=== PATIENT | male | born 1995 | race Caucasian/White ===

== ENCOUNTER 2019-12-14 13:06 | Outpatient (CLI) | payer BC, SELFPAY ==
--- NOTE | 2019-12-14 13:00 | MR_ITS ---
WS: [id number] MRI LEFT KNEE HISTORY: S83.209A Unspecified tear of unspecified meniscus COMPARISON: 11/30/2019 Anterior cruciate ligament: Complete tear of the ACL. Complete disruption of the fibers in the centra l ACL with marked thickening. Posterior cruciate ligament: Intact. Medial collateral ligament: Small amount of fluid adjacent to the MCL. Posterior lateral corner structures: Intact. Medial menisci: Intact. Lateral meniscus: Increased signal in the posterior horn towards the free edge. Consistent with a men iscal tear. Tear appears to be in the vertical dimension. Extensor mechanism: Distal quadriceps tendon and patellar tendons are intact. Fluid and soft tissue: Very large suprapatellar joint effusion. Moderate amount of edema surrounding the knee. No Hilario's cyst. Osseous and articular structures: Patellofemoral compartment: Normal. Medial compartment: Joint space is maintained. Edema within the medial tibial plateau in the far medi al femoral condyle. Lateral compartment: Joint space is maintained. There is a full-thickness cartilage defect measuring 3.5 mm transversely in the tibial plateau. There is a large amount of marrow edema along the tibial p lateau and also extending into the proximal fibular head. There are 2 ovoid intermediate signal nodules in the anterior joint space. The largest measures 14 x 5 mm in the anterior joint space. These are probably loose bodies. Clumped fibers of the ACL may also be present. MR/MR knee LT wo con* [id number] IMPRESSION: 1. Complete tear ACL. 2. Large amount of marrow edema along the entire tibial plateau into the tibia l metaphysis and fibular head. 3. Very small amount of marrow edema in the medial femoral condyle. 4. Tear involving the free edge posterior horn lateral meniscus. 5. Full-thickness lateral tibial plateau cartilage defect measuring 3.5 mm. 6. Several small loose bodies in the anterior joint space. 7. Mild MCL sprain. 8. Very large joint effusion.
== END 2019-12-14 13:07 | disposition home or self-care (01) ==
LOC: RADSHAW 13:09
PROVIDERS: Visit Provider Orthopaedic Surgery
DX: S83.519A Sprain of anterior cruciate ligament of unspecified knee, initial encounter; S83.282A Other tear of lateral meniscus, current injury, left knee, initial encounter; S83.412A Sprain of medial collateral ligament of left knee, initial encounter; X58.XXXA Exposure to other specified factors, initial encounter; R60.0 Localized edema; M25.462 Effusion, left knee
CPT/HCPCS: 73721

== ENCOUNTER → 2019-12-29 09:53 | Outpatient (BNVA) | payer BC, SELFPAY | PROVIDERS: Visit Provider Orthopaedic Surgery | DX: Z11.59 Encounter for screening for other viral diseases (principal); S83.92XA Sprain of unspecified site of left knee, initial encounter; X58.XXXA Exposure to other specified factors, initial encounter | CPT/HCPCS: 87635 ==

== ENCOUNTER 2020-01-04 10:51 | Day surgery (SDC) | payer BC, SELFPAY ==
[2020-01-03 09:02] VITALS: BMI 26.6
[2020-01-04] VITALS (12 sets, daily range): BP systolic 122–187; BP diastolic 70–123; PULSE 83–114; RESP 14–24; TEMP 36.1–37.1; O2SAT 96–100
[2020-01-04] MEDS: sodium chloride 0.9% 1,000 ML 30 ML IV (11:33)
--- NOTE | 2020-01-04 11:41 | ANES.PREANE2 ---
Pre-Anesthetic Assessment Pre-Anesthetic Assessment: Height/Weight: Height 1.88 m Weight 93.894 kg Temp Pulse Resp BP Pulse Ox 98.8 F 83 18 159/83 98 01/04/20 11:18 01/04/20 11:18 01/04/20 11:18 01/04/20 11:18 01/04/20 11:18 Preop Diagnosis: Left anterior cruciate ligament tear, left lateral meniscal tear, chondral fracture left lateral tibial plateau Proposed Procedure: Operation Date: 01/04/20 12:20 Proposed Procedures p Left knee ACL Reconstruction and other indicated procedures 54666 S83.207A(Left) - Huey Ellis MD Familial anesthetic complications: None Was Beta Steve taken within 24 hours: N/A Last intake: Intake Last Liquid Date 01/04/20 Last Liquid Time 06:00 Last Solid Date 01/04/20 Last Solid Time 18:00 Social: Social History: Alcohol and Tobacco Comment: 6 pack a day Exam: Pre-Anes Outpt Exam: alert, oriented x 3, clear to auscultation bilaterally and regular rate & rhythm Airway: Cervical ROM: WNL MP: 2 Dentition: Chipped Anesthetic Plan: ASA status: 1 Anesthesia: General Risk of > 500 ml blood loss (7ml/kg in children): No Meds/Allergies Current Medications: Current Medications Generic Name Dose Route Start Last Admin Trade Name Freq PRN Reason Stop Dose Admin Sodium Chloride 1,000 mls @ 30 ml s/hr 01/04/20 11:15 01/04/20 11:33 Sodium Chloride 0.9% IV 01/05/20 11:14 30 mls/hr .Q24H JAIDA Administration PFSH Anesthesia PFSH: Social History Smoking and tobacco status: never smoked Alcohol intake: current Alcohol intake frequency: few times a week Data Anesthesia Cardiac Studies: No Data to Display
--- NOTE | 2020-01-04 13:19 | W.PM.OPSUD ---
Surgery/Procedure H&P Update DATE OF PROCEDURE: January 04, 2020 DATE H&P PERFORMED: 12/25/19 PREOP DIAGNOSIS: Left anterior cruciate ligament tear, left lateral meniscal tear, chondral fracture left lateral tibial plateau PLANNED PROCEDURE: Operation Date: 01/04/20 12:20 Proposed Procedures p Left knee ACL Reconstruction and other indicated procedures 31920 S83.207A(Left) - Huey Ellis MD
[2020-01-04] MEDS: clindamycin 600 MG/50 ML PREMIX 100 MG IV (14:38)
[2020-01-04] MEDS: morphine 4 mg/mL SDV 1 mL 8 MG IM (15:20)
--- NOTE | 2020-01-04 16:57 | PM.OP ---
Operative Report Date of procedure: January 04, 2020 Pre-op Diagnosis: Left anterior cruciate ligament tear, left lateral meniscal tear, chondral fracture left lateral tibial plateau Post-op diagnosis: other Post-op Diagnosis: Left anterior cruciate ligament tear, left lateral meniscal tear Post-op Findings: As above Procedure Done: Anterior cruciate ligament reconstruction, partial left lateral meniscectomy Implants: [employer] 15 mm closed loop Endobutton, BioSureSync sleeve 9/10, 9 x 25 mm BioSure screw Pathology: none sent Surgeon: Huey Ellis Anesthesia: General Estimated blood loss (mL): 20 Tourniquet time (min): 81 Complications: None Findings: The patient had a complete tear of his anterior cruciate ligament from its origin on the femur scarring back on his posterior cruciate ligament. He had a small flap tear involving the lateral meniscal root involving the central 50% with a remaining stable attachment chondral fractures were identified Condition: stable Disposition: PACU Procedure: The patient was taken to the operating room and given a general anesthesia. He was given 2 g of Ancef. He is knee was infiltrated with 30 cc of 0.5% Marcaine with epi and 10 mg of morphine. The leg was prepped and draped in the usual fashion. A timeout was performed. The knee was entered through the inferior medial and inferior lateral portal. The diagnostic portion of arthroscopy was performed. The lateral meniscal tear was identified. Utilizing an incisor shaver the posterior flap was debrided back. This did involve removal approximately the central 40% of the meniscal root however the remaining peripheral attachment appeared to be intact. Attention was then paid to the anterior cruciate ligament. Utilizing an incisor shaver small amount of lateral wall was resected allowing visualization of the posterior lateral intercondylar notch. A 3 cm long incision was then made over the medial tibial plateau and dissection carried down with blunt scissors identifying a well-defined semi-tendinosis and gracilis graft. The 2 grafts were freed off their insertion on the tibia and fixed with a [employer] Ultrabraid suture. Using the closed ended tendon stripper to grafts were harvested. On the back table with her freed of muscle and the free ends fixed with the Ultrabraid suture. They were pretensioned on the back table. They were measured and fit snugly through a [] mm tunnel. Using the anatomic femoral footprint guide, a guidepin was driven up from the 1:30 position exiting superior and lateral femur. Tunnel depth was measured at 40 mm. The Endobutton reamer was passed over the guide pin confirming the length of tunnel. A 9.5 mm reamer was then passed to a depth of 35 mm. The [employer]hew ProTrac guide was used to pass a guidepin from the medial tibia exiting the tibial footprint. Over this was passed in a 10 mm reamer. On the back table, the 2 grafts were doubled through a 15 mm closed loop Endobutton. This allowed 25 mm of tendon to be buried in the femur and allowed more than sufficient room to flip the Endobutton. The grafts were shuttled from the tibia through the femur using an ultra braid suture. The Endobutton was felt to flip on the lateral cortex and secured with tension on the sutures to the tibia. A [employer] Biosure Sync sleeve was placed and was secured with a 9 x 25 mm Biosure PK screw. Intraoperative images showed satisfactory position of the button. The knee and medial wounds were irrigated with saline. The sartorius fascia was closed with 2-0 Vicryl. Deep tissues were closed with 2-0 Vicryl. The tibial wound was closed with a running 3-0 Prolene. Portals were closed with 3-0 Prolene. Steri-Strips were applied over the tibial incision. Sterile dressings were applied. He was taken to recovery room in stable condition where he will be placed in a hinged knee brace locked in full extension.
[2020-01-04] MEDS: meperidine 50 mg/mL INJ 12.5 MG IVP ×2 (17:04→17:09)
[2020-01-04] MEDS: ondansetron 2 mg/ML SDV 2 mL 4 MG IVP (17:17)
--- NOTE | 2020-01-04 18:20 | ANE.PACU2 ---
Inpatient post-anesthesia follow up: Airway intact: Yes Vital signs: Temperature 97 F Pulse Rate 86 Respiratory Rate 18 Blood Pressure 122/70 Pulse Oximetry 98 Oxygen Delivery Me thod Room Air Oxygen Flow Rate 8 Fraction of Inspir ed Oxygen Hydration adequate: Yes Nausea and vomiting: No Pain level: 3 Mental status: Baseline
--- NOTE | 2020-01-04 19:18 | PC.NURSE ---
1820- oxycodone non administered, pt refused. pharmacist saqib gross.
== END 2020-01-04 18:20 | disposition home or self-care (01) ==
PROVIDERS: Visit Provider Orthopaedic Surgery
PROC: (CPT 27407; principal; 2020-01-04 12:20)
DX: S83.512A Sprain of anterior cruciate ligament of left knee, initial encounter (principal); S83.282A Other tear of lateral meniscus, current injury, left knee, initial encounter; S82.142A Displaced bicondylar fracture of left tibia, initial encounter for closed fracture; X58.XXXA Exposure to other specified factors, initial encounter; F17.210 Nicotine dependence, cigarettes, uncomplicated
CPT/HCPCS: 27429; 29881; 12345; 97760; C1713; J1100; J1580; J1885; J2175; J2250; J2270; J2405; J2704; J3010; J3490; J7030; L1812

== ENCOUNTER 2020-01-08 15:30 | Outpatient (RCR) | payer BC, SELFPAY | END 2020-01-13 23:59 | disposition home or self-care (01) | LOC: SPT 15:30 | PROVIDERS: Referring Provider Orthopaedic Surgery; Visit Provider Orthopaedic Surgery | DX: Z47.89 Encounter for other orthopedic aftercare (principal) | CPT/HCPCS: 97110; 97161 ==

== ENCOUNTER 2020-01-14 06:00 | Outpatient (RCR) | payer BC, SELFPAY | END 2020-02-12 23:59 | disposition home or self-care (01) | LOC: SPT 06:00 | PROVIDERS: Referring Provider Orthopaedic Surgery; Visit Provider Orthopaedic Surgery | DX: S83.512D Sprain of anterior cruciate ligament of left knee, subsequent encounter (principal) | CPT/HCPCS: 97110 ==

== ENCOUNTER 2020-02-13 06:00 | Outpatient (RCR) | payer BC, SELFPAY | END 2020-03-14 23:59 | disposition home or self-care (01) | LOC: SPT 06:00 | PROVIDERS: Referring Provider Orthopaedic Surgery; Visit Provider Orthopaedic Surgery | DX: Z47.89 Encounter for other orthopedic aftercare (principal) | CPT/HCPCS: 97110 ==

== ENCOUNTER 2020-03-15 06:00 | Outpatient (RCR) | payer OTHER, SELFPAY | END 2020-04-14 23:59 | disposition home or self-care (01) | LOC: SPT 06:00 | PROVIDERS: Referring Provider Orthopaedic Surgery; Visit Provider Orthopaedic Surgery | DX: Z98.890 Other specified postprocedural states (principal); S86.002D Unspecified injury of left Achilles tendon, subsequent encounter; X58.XXXD Exposure to other specified factors, subsequent encounter | CPT/HCPCS: 97110 ==

== ENCOUNTER 2020-04-15 06:00 | Outpatient (RCR) | payer OTHER, SELFPAY | END 2020-05-12 23:59 | disposition home or self-care (01) | LOC: SPT 06:00 | PROVIDERS: Referring Provider Orthopaedic Surgery; Visit Provider Orthopaedic Surgery | DX: Z48.89 Encounter for other specified surgical aftercare (principal) | CPT/HCPCS: 97110; 97116 ==

== ENCOUNTER 2023-05-06 13:47 | Emergency (ER) | payer OTHER, SELFPAY ==
[2023-05-06 13:48] VITALS: BP 139/95; PULSE 106; RESP 13; TEMP 37; O2SAT 99; BMI 20.5
--- NOTE | 2023-05-06 13:51 | ED_ITS ---
HPI - Syncope 2 General: Chief Complaint: Syncope Stated Complaint: syncope Time Seen by Provider: 05/06/23 13:50 History of Present Illness: 28-year-old male patient was brought in today for a syncopal episode. 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 And they were waiting to close gait and the patient was standing behind him when his father heard in cast and he turned around and the patient was seen on the ground having seizure-like episode. Patient then seemed to stop breathing and father performed CPR for like 1 minute until he gasp and started breathing on his own again. Patient then seemed dazed for about 15 to 20 minutes. Since then patient has been acting normal. Father reports that patient's had problems with his stomach and has had several vomiting episodes. Patient does endorse alcohol use and tobacco use. Patient does take [id number] omeprazole, ibuprofen, and a daily vitamin. Patient does admit that alcohol drinking causes the emesis. Patient denies any blood in the emesis. Patient's last ingestion of alcohol was last night. Patient has noticeable abrasion to center forehead. This did occur about 30 minutes prior to seizure activity. Patient and father both report they were chasing a cow when he accidentally ran into a tree. Review of Systems 2 General: Reports: 10 or more systems reviewed and unremarkable except in HPI and below Neuro: Reports: seizure-like activity [facility] ED 2 PFSH: Social History Smoking and tobacco/nicotine status: never used tobacco/nicotine Alcohol intake: current Alcohol intake frequency: few times a week Substance/Drug Use: never Physical Exam 2 Const: COMMON NORMALS: alert HENMT: COMMON NORMALS: normocephalic HEAD & SCALP: normocephalic Eye: COMMON NORMALS: Equal, round and reactive pupils present PUPIL: Yes Equal, round and reactive pupils present Neck/C-Spine: COMMON NORMALS: full ROM and no meningeal signs Chest: COMMONS NORMALS: normal inspection of the chest Resp: COMMON NORMALS: normal respiratory effort and clear to auscultation bilaterally AUSCULTATION: clear to auscultation bilaterally Cardio: COMMON NORMALS: regular rate and regular rhythm RATE: regular rate RHYTHM: regular rhythm GI: COMMON NORMALS: Soft to palpation and non-tender PALPATION: Yes Soft to palpation : COMMON NORMALS: Yes no CVA tenderness BLADDER/KIDNEY EXAM: Yes no CVA tenderness Back/Pelvis: COMMON NORMALS: no CVA tenderness and thoracic and lumbar spine normal to inspection Extremity: COMMON NORMALS: normal to inspection Neuro: ELLIOT COMA SCALE: document GCS findings [place] coma scale eye opening: Spontaneous [place] coma scale verbal response: Orientated [place] coma scale motor response: Obey commands [place] coma scale total score: 15 S ENSORIUM/ORIENTATION: Yes alert MENINGEAL SIGNS: Yes no meningeal signs Skin: TRAUMA: abrasion (Central forehead) Course 2 Vital Signs: Vital signs: Vital Signs Temperature 98.6 F 05/06/23 13:48 Pulse Rate 105 H 05/06/23 16:16 Respiratory Rate 21 H 05/06/23 16:16 Blood Pressure 149/91 05/06/23 16:16 Pulse Oximetry 98 05/06/23 16:16 MDM - Syncope Medical Decision Making Patient comes in today for possible seizure-like activity. On exam patient is alert and oriented. Patient has had full resolution of symptoms. No loss of bowel or bladder was noted. Respirations are even lungs are clear to auscultation. Patient reported no headache. Patient did have a small abrasion to the forehead which was because prior to the incident and the patient had ran into a tree. Vital signs are normal. Differential diagnosis includes but not limited to concussion syndrome, intracranial bleeding, dehydration, alcohol use disorder, alcohol withdrawal. CBC noted some macrocytosis. CMP noted a increased anion gap at 19, sodium 136, glucose 119. EtOH was 0. Patient does have a resting tremor. AST was elevated at 83. Patient had some mild increase in bilirubin at 2.1. Mother had discussed with me her concerns due to patient's insomnia and his use of alcohol. Mother is concerned due to also patient's weight loss of 55 pounds. Patient does have a pretty healthy BMI still at 20 though. Patient does endorse alcohol use but denies alcoholism. EKG was unremarkable. First troponin was negative. Patient refused second lab work. Discussed patient's need for vitamin and B12 and making sure that he stays well- hydrated. Recommended to follow-up with primary care for further instructions. Patient did agree to try quetiapine for his insomnia at night most likely due to his alcohol use disorder. Patient reports understanding of care plan and need for follow-up or return to the ER. Lab Data 05/06/23 14:11 05/06/23 14:11 Laboratory Results WBC 8.77 10^3/uL (3.29-11.43) 05/06/23 14:11 RBC 3.90 10^6/uL (3.85-5.65) 05/06/23 14:11 Hgb 13.80 g/dL (11.27-16.99) 05/06/23 14:11 Hct 39.7 % (37-53) 05/06/23 14:11 MCV 101.8 fl (82-101) H 05/06/23 14:11 MCH 35.4 pg (27-33) H 05/06/23 14:11 MCHC 34.8 g/dL (30-55) 05/06/23 14:11 RDW 14.4 % (12.1-15.1) 05/06/23 14:11 Plt Count 187 10^3/cmm (157-399) 05/06/23 14:11 MPV 11.3 fL (7.4-10.4) H 05/06/23 14:11 Neut % (Auto) 90.7 % 05/06/23 14:11 Lymph % (Auto) 4.0 % 05/06/23 14:11 [place] % (Auto) 4.0 % 05/06/23 14:11 Eos % (Auto) 0.1 % 05/06/23 14:11 Baso % (Auto) 0.7 % 05/06/23 14:11 Neut # (Auto) 7.96 10^3/uL (1.8-7.7) H 05/06/23 14:11 Lymph # (Auto) 0.4 10^3/uL (0.8-4.8) L 05/06/23 14:11 [place] # (Auto) 0.4 10^3/uL (0.2-0.9) 05/06/23 14:11 Eos # (Auto) 0.0 10^3/uL (0.0-0.8) 05/06/23 14:11 Baso # (Auto) 0.1 10^3/uL (0.0-0.1) 05/06/23 14:11 Nucleated RBC % (auto) 0 % 05/06/23 14:11 Nucleated RBCs # 0.0 /100WBC 05/06/23 14:11 Sodium 136 mmol/L (136-145) 05/06/23 14:11 Potassium 3.6 mmol/L (3.5-5.1) 05/06/23 14:11 Chloride 94 mmol/L (98-107) L 05/06/23 14:11 Carbon Dioxide 26 mmol/L (22-29) 05/06/23 14:11 Anion Gap 19.6 (5-19) H 05/06/23 14:11 BUN 6 mg/dL (6-20) 05/06/23 14:11 Creatinine 0.8 mg/dL (0.7-1.2) 05/06/23 14:11 GFR Calculation 113.5 mL/min (90-130) 05/06/23 14:11 Glucose 119 mg/dL (65-115) H 05/06/23 14:11 Calculated Osmolality 281 mOsm/kg (285-295) L 05/06/23 14:11 Calcium 9.4 mg/dL (8.5-10.5) 05/06/23 14:11 Total Bilirubin 2.1 mg/dL (0.15-1.2) H 05/06/23 14:11 AST 83 U/L (0-40) H 05/06/23 14:11 ALT 28 U/L (0-41) 05/06/23 14:11 Alkaline Phosphatase 79 U/L (40-130) 05/06/23 14:11 Troponin T Baseline 8 ng/L (0-15) 05/06/23 14:11 Total Protein 7.4 g/dL (6.6-8.7) 05/06/23 14:11 Albumin 4.6 g/dL (3.5-5.2) 05/06/23 14:11 Globulin 2.8 g/dL (1.3-4.6) 05/06/23 14:11 Ethyl Alcohol < 10 mg/dL (0-10) 05/06/23 14:11 All radiology interpretation(s) finalized by discharge EKG Data EKG 1: I personally reviewed and interpreted this EKG as follows: EKG interpretation date: 05/06/23 EKG interpretation time: 14:21 Prior EKG tracings: not available for review Interpretation: EKG shows a sinus tachycardia with a regular rate at [address] elevation or ectopy is noted. No prior exam was available for comparison. Reviewed exam with Dr. Correa who agreed. Computer Generated Interpretation: Atrial flutter/tachycardia with RVR, abnormal rhythm EKG, unconfirmed report. 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, unspecified with alcohol-induced sleep disorder Condition: Stable Prescriptions: New Seroquel 50 mg tablet 50 mg PO DAILY Qty: 30 3RF Rx Instructions: at bedtime cyanocobalamin (vitamin B-12) 3,000 mcg capsule 3,000 mcg PO DAILY Qty: 30 3RF PNV no.154-iron fumarate-folic 27 mg iron- 1 mg tablet 1 tab PO DAILY Qty: 30 3RF No Action ibuprofen 200 mg Tablet 600 mg PO Q6H PRN (Reason: Pain) Centrum Men 8 mg iron- 200 mcg-600 mcg Tablet 1 tab PO DAILY Discharge Orders: Discharge ED (Routine); Ordered 05/06/23 Ordered By: Ashwin Berg Discharge Diet: Usual diet Discharge Activity: Increase activity as tolerated Patient Instructions: Gastritis (ED), Malnutrition (DC) Activity Restrictions/Additional Instructions: Try to limit alcohol consumption to 2 drinks a day. Make sure to stay well- hydrated with working in the sun or sweating profusely. Make sure to take vitamin B12 and a One-A-Day vitamin with folic acid daily. Take quetiapine 50 mg at bedtime to help with sleep. Follow-up with primary care for further instructions. Return to ED for new concerns. Coding Level of Care Code ED [employer] Guid[employer] Counselor for Randy Downey
--- NOTE | 2023-05-06 13:59 | XR_ITS ---
WS: [id number] Examination: XR chest 1V portable [id number] Reason for Exam: syncope Date: 05/06/2023 Comparison: None. Findings: The cardiomediastinal silhouette is within normal limits. There is no congestion or effusion. There is no consolidation. Impression: No acute lung process is identified.
--- NOTE | 2023-05-06 13:59 | ECG_ITS ---
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 Measurements Intervals [place] Rate: 111 P: 0 OK: 0 QRS: 74 QRSD: 90 T: 81 QT: 340 QTc: 463 Interpretive Statements Sinus TACHYCARDIA WITH RAPID VENTRICULAR RESPONSE ABNORMAL RHYTHM ECG No previous ECG available for comparison Electronically Signed On 05-06-2023 20:05:00 PROFESSIONAL DEVELOPMENT DIRECTOR by Antwon Germain M.D. [id number]
--- NOTE | 2023-05-06 13:59 | CT_ITS ---
WS: [id number] CT HEAD TECHNIQUE: Noncontrast CT of the head obtained from the skullbase to the vertex. CLINICAL INFORMATION: fall head injury COMPARISON: None. DLP: 1106.[address] scans at [facility] use at least one of these dose optimization techniques: automated e xposure control; mA and/or kV adjustment per patient size (includes targeted exams where dose is matc hed to clinical indication); or iterative reconstruction. FINDINGS: No evidence of intracranial hemorrhage or mass effect. Ventricular system and basal cisterns are chen nt. No extra-axial fluid collections. No evidence of mass or mass effect. Normal andrade-white differen tiation. Paranasal sinuses and mastoid air cells are well aerated. .Normal visualized soft tissues. IMPRESSION: 1. No evidence of intracranial hemorrhage or mass effect. 2. No acute intracranial findings.
[2023-05-06 14:22] LABS: Basophils # 0.1 10^3/uL (0.0-0.1); Basophils % 0.7 %; Eosinophils % 0.1 %; Hematocrit 39.7 % (37-53); Lymphocytes # 0.4 10^3/uL (0.8-4.8); Mean Corpuscular HGB Conc 34.8 g/dL (30-55); Mean Corpuscular Hemoglobin 35.4 pg (27-33); Mean Corpuscular Volume 101.8 fl (82-101); Mean Platelet Volume 11.3 fL (7.4-10.4); Monocytes # 0.4 10^3/uL (0.2-0.9); Neutrophils # 7.96 10^3/uL (1.8-7.7); Neutrophils % 90.7 %; Nucleated Red Blood Cells % 0 %; Platelet Count 187 10^3/cmm (157-399); Red Cell Distribution Width 14.4 % (12.1-15.1); White Blood Count 8.77 10^3/uL (3.29-11.43)
[2023-05-06 14:42] LABS: Alanine Aminotransferase 28 U/L (0-41); Albumin Level 4.6 g/dL (3.5-5.2); Alcohol Level < 10 mg/dL (0-10); Alkaline Phosphatase 79 U/L (40-130); Anion Gap 19.6 (5-19); Aspartate Amino Transferase 83 U/L (0-40); Blood Urea Nitrogen 6 mg/dL (6-20); Calcium 9.4 mg/dL (8.5-10.5); Carbon Dioxide 26 mmol/L (22-29); Chloride 94 mmol/L (98-107); Creatinine Clr Calc Pharmacy 149.6267; Globulin 2.8 g/dL (1.3-4.6); Glomerular Filtration Rate 113.5 mL/min (90-130); Glucose 119 mg/dL (65-115); Osmolality Calculated 281 mOsm/kg (285-295); Potassium 3.6 mmol/L (3.5-5.1); Sodium 136 mmol/L (136-145); Total Bilirubin 2.1 mg/dL (0.15-1.2); Total Protein 7.4 g/dL (6.6-8.7)
[2023-05-06 14:45] LABS: Troponin(5th) Baseline 8 ng/L (0-15)
[2023-05-06] MEDS: lactated ringers 1,000 ML 999 ML IV (15:09)
[2023-05-06] MEDS: folic acid 1 mg Tablet PO (15:46)
[2023-05-06] MEDS: cyanocobalamin 1,000 mcg/mL SDV 1000 MCG IM (15:48)
[2023-05-06 16:16] VITALS: BP 149/91; PULSE 105; RESP 21; O2SAT 98
== END 2023-05-06 16:05 | disposition home or self-care (01) ==
PROVIDERS: Emergency Provider Nurse Practitioner Family
DX: R55 Syncope and collapse (principal); E86.0 Dehydration; F10.982 Alcohol use, unspecified with alcohol-induced sleep disorder; Y90.0 Blood alcohol level of less than 20 mg/100 ml; S00.81XA Abrasion of other part of head, initial encounter; W22.09XA Striking against other stationary object, initial encounter
CPT/HCPCS: 36415; 70450; 71045; 80053; 80307; 84484; 85025; 93005; 96372; 96374; 99285; J3411; J3420; J7120

== ENCOUNTER 2023-06-04 08:26 | Emergency (ER) | payer OTHER, SELFPAY ==
[2023-06-04 08:37] VITALS: BP 153/112; PULSE 135; RESP 17; TEMP 36.9; O2SAT 98; BMI 20.2
[2023-06-04 09:04] VITALS: BP 156/110; PULSE 110; O2SAT 99
--- NOTE | 2023-06-04 09:12 | ED_ITS ---
HPI - Dental/Oral General: Chief complaint: Skin/Abscess/Foreign Body Stated complaint: Allergic Reaction Time Seen by Provider: 06/04/23 08:32 Source: patient Mode of arrival: ambulatory Limitations: no limitations History of Present Illness: Patient is a 28-year-old male who presents to ED today with a complaint of swelling and blue color to the right side of his tongue. Patient states he initially noticed it yesterday around noon after awakening from a nap. He feels like swelling is worsened. He is not able to eat secondary to the swelling but is able to control his secretions and swallow liquids. Patient was seen here in emergency department a month ago for a seizure. He has not had any follow-up following this visit. Onset (ago): day(s) (yesterday) Duration: constant Severity: severe Relieving factors: nothing Exacerbating factors: nothing Context: other (tongue swelling following a nap) Associated symptoms: Reports tongue swelling; Denies fever(s) or odynophagia Treatment prior to arrival: none Review of Systems Const: Denies: fever(s), chills, body aches, fatigue or malaise ENMT: Reports: swelling of lips/tongue; Denies: throat pain, uvular edema, enlarged tonsils, odynophagia, hoarseness, mouth pain or oral sores GI: Denies: nausea or vomiting Musc: Denies: neck pain, back pain, extremity pain or joint pain Skin/Breast: Denies: rash Neuro: Denies: headache(s) or dizziness All/Imm: Reports: tongue swelling PFS ED PFSH: Social History Smoking and tobacco/nicotine status: never used tobacco/nicotine Alcohol intake: current Alcohol intake frequency: few times a week Substance/Drug Use: never Physical Exam Const: COMMON NORMALS: no acute distress, average body habitus, patient oriented x3, no limitations, healthy appearing, alert and well nourished HENMT: COMMON NORMALS: normocephalic, atraumatic and Normal external nose present HEAD & SCALP: normal to inspection, normocephalic and atraumatic FACE & SINUS: normal facial exam, sinuses nontender and face symmetric; no edema NOSE: Normal external nose present MOUTH: Normal oral and palatal mucosa present and tongue abnormal TEETH & GINGIVA: Yes fair dentition THROAT: posterior oropharynx normal and tonsils normal; no uvular edema OTHER: patient has significant edema and hematoma to the R side of his tongue; there is a small area towards the tip that does appear to be a small bite qi Eye: GENERAL EYE: appearance normal, both eyes and all related structures Neck/C-Spine: COMMON NORMALS: no lymphadenopathy GENERAL: Yes normal visual inspection Resp: COMMON NORMALS: normal respiratory effort Neuro: COMMON NORMALS: patient oriented x3 SENSORIUM/ORIENTATION: Yes alert Course Consultations: Consultation #1: Dr. Randolph-agreed this was most likely trauma induced, recommended keeping the head elevated and avoid lying on his back or lying flat, tongue rest, ice/cold fluids, liquid diet, steroids, and wearing a tooth/tongue guard when he sleeps to avoid this from happening again should he have another seizure Vital Signs: Vital signs: Vital Signs Temperature 98.4 F 06/04/23 08:37 Pulse Rate 91 06/04/23 11:01 Respiratory Rate 17 06/04/23 08:37 Blood Pressure 134/86 06/04/23 11:01 Pulse Oximetry 99 06/04/23 11:01 Oxygen Delivery Me thod Room Air 06/04/23 09:04 MDM - Dental/Oral Medical Decision Making Patient here for significant edema and hematoma to the right side of his tongue. He is controlling his secretions normally. He has no difficulty breathing. He is able to swallow liquids. I highly suspect that patient had another seizure during his nap yesterday and bit his tongue. I did discuss findings with Dr. Randolph who agreed. I spoke to patient about several conservative therapies at home for this including keeping his head elevated and avoid lying flat or on his back, tongue rest, ice/cold fluids, steroids, and tooth/tongue guard to wear at night. With this being patient's second seizure I strongly recommended we start him on an IV loading dose of medications here and place him on antiepileptic medication however patient adamantly refuses this. He tells me he does not want to be zombie like on these medications. We discussed how there are multiple options to use for seizures-some of which having a less drowsy profile. He is adamant that he does not want to be started on any seizure medications at this time. He is refusing follow-up with neurology. He is agreeable to steroids over the next couple of days. He refuses a tongue/tooth guard to wear when he sleeps. Discussed risks of this including worsening swelling, additional trauma, tongue obstructing airway, status elliptica/. Patient wanted to speak to me following my discharge encounter and stated he changed his mind and would be agreeable to starting seizure medications. I did inquire about his alcohol use further. He states he used to be a very heavy drinker but over the past 5 months has cut back significantly. He still drinks daily but not nearly as much as I used to . We did discuss how alcohol withdrawal can cause seizures and how these are treated differently than epileptic seizures. Patient refuses any type of medication to help with alcohol withdrawal as he does not feel his seizures are related to this. He has slowly titrated his drinking down or for several months. No reports of quitting cold turkey prior to seizures. He has no interest in quitting drinking all together. He states he is agreeable to start Keppra and follow up with neurology. Medical Records I reviewed the patient's medical records. Lab Data I reviewed the patient's lab results. No radiology studies performed this visit Discharge Plan Discharge Patient Disposition: Home Clinical Impression: Hematoma of tongue, Seizure Condition: Stable Prescriptions: New dexamethasone 6 mg tablet 6 mg PO DAILY Qty: 6 0RF Keppra 500 mg tablet 500 mg PO BID 28 Days Qty: 56 0RF No Action ibuprofen 200 mg Tablet 600 mg PO Q6H PRN (Reason: Pain) Centrum Men 8 mg iron- 200 mcg-600 mcg Tablet 1 tab PO DAILY cyanocobalamin (vitamin B-12) 3,000 mcg capsule 3,000 mcg PO DAILY Qty: 30 3RF Discharge Orders: Discharge ED (Routine); Ordered 06/04/23 Ordered By: Breonna Guillaume Activity Restrictions/Additional Instructions: As we discussed your head needs to stay elevated at all times. Avoid lying flat or sleeping on your back. You need to drink and suck on cold fluids is much as possible including sucking on ice, popsicles, ice cream, cold fluids. Rest your tongue is much as possible so avoid talking. You need to be on a liquid diet is much as possible over the next week. We have offered you a tooth guard to avoid biting your tongue again should you have another seizure but you have declined. I am placing you on seizure medication and will place a referral to neurology for further follow up. You need to return to the emergency department for worsening swelling, inability to swallow, or control your secretions/saliva, or difficulty breathing. You also need to return for any further seizures. Coding Level of Care Code ED Technician [employer] for Randy Downey
[2023-06-04] MEDS: diphenhydrAMINE 50 mg/mL SDV 1mL IVP (09:23)
[2023-06-04] MEDS: dexamethasone 4 mg/mL INJ 8 MG IVP (09:27)
[2023-06-04] MEDS: levETIRAcetam 1,000 MG/100 ML PREMIX 400 MG IV (10:39)
[2023-06-04 11:01] VITALS: BP 134/86; PULSE 91; O2SAT 99
[2023-06-04 11:23] VITALS: BP 134/86; PULSE 91; RESP 17; TEMP 36.9; O2SAT 99
--- NOTE | 2023-06-04 11:34 | DCPLANNER ---
Message was sent to neurology on 06/04/23 at [id number]. [facility] to contact patient with appt.
== END 2023-06-04 11:25 | disposition home or self-care (01) ==
PROVIDERS: Emergency Provider Physician Assistant
DX: S00.532A Contusion of oral cavity, initial encounter (principal); R56.9 Unspecified convulsions; X58.XXXA Exposure to other specified factors, initial encounter
CPT/HCPCS: 96374; 96375; 99284; J1100; J1200; J1953

== ENCOUNTER 2023-10-04 15:01 | Emergency (ER) | payer OTHER, SELFPAY ==
[2023-10-04 15:03] VITALS: BP 152/85; PULSE 131; TEMP 36.7; O2SAT 99; BMI 19.9
[2023-10-04 15:10] VITALS: BP 143/99; PULSE 109; RESP 22; O2SAT 100
[2023-10-04 15:31] LABS: Basophils # 0.1 10^3/uL (0.0-0.1); Eosinophils % 0.5 %; Hematocrit 43.6 % (37-53); Lymphocytes # 0.4 10^3/uL (0.8-4.8); Lymphocytes % 6.8 %; Mean Corpuscular HGB Conc 34.6 g/dL (30-55); Mean Corpuscular Volume 100.9 fl (82-101); Mean Platelet Volume 12.2 fL (7.4-10.4); Monocytes # 0.3 10^3/uL (0.2-0.9); Monocytes % 5.5 %; Neutrophils # 5.32 10^3/uL (1.8-7.7); Neutrophils % 85.9 %; Nucleated Red Blood Cells % 0 %; Platelet Count 153 10^3/cmm (157-399); Red Blood Count 4.32 10^6/uL (3.85-5.65); Red Cell Distribution Width 12.9 % (12.1-15.1); White Blood Count 6.19 10^3/uL (3.29-11.43)
[2023-10-04 15:40] VITALS: BP 139/94; PULSE 110; RESP 22; O2SAT 100
--- NOTE | 2023-10-04 15:43 | W.ED.SEIZURE ---
Documented by User: LIAM Heath 10/04/23 17:00 HPI - Seizure General: Chief Complaint: Seizure Stated Complaint: possible seizure Time Seen by Provider: 10/04/23 15:23 Source: patient Mode of arrival: ambulatory Limitations: no limitations History of Present Illness: HPI Narrative: Patient is a 28-year-old male who presents to ED today along with his father for evaluation following a seizure. Patient is known to me from his previous ED visit. 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 There was no apnea. Father states there was a postictal period. No incontinence. I saw patient back in May 2023 following a seizure. He was extremely reluctant to start on epileptic medications however did eventually agree to try Keppra. After taking this medication he did not like the side effects and discontinued it. He states he did follow-up with his primary care provider who referred him to a neurologist in [place] but patient canceled this appointment. Upon my examination, patient refuses epileptic medication today. He is agreeable to try neurology follow up with Dr. Kiser. States he continues to drink a small amount of alcohol daily (quantifies as probably three shots of whiskey in a small zion jar). He reports one previous seizure between today's visit and when I saw him back in May. complaint: seizure Onset (ago): hour(s) Description of Episode: tonic-clonic movement and post-event confusion -: minutes(s) Witnessed: Yes - by Bystander (father) Trauma: No Seizure History: Yes Place: Home Possible Precipitating Event: none Associated symptoms: Deny chest pain, chills, fever(s) or malaise Treatments prior to arrival: none Review of Systems Const: Reports: other (tremor-states he has a known essential tremor ); Denies: fever(s), chills, body aches, fatigue or malaise Card: Denies: chest pain Resp: Denies: dyspnea GI: Denies: abdominal pain, nausea, vomiting or diarrhea Musc: Denies: neck pain, back pain, extremity pain or joint pain Skin/Breast: Denies: rash Neuro: Reports: seizure-like activity; Denies: headache(s), numbness in extremities, weakness in extremities, sensory changes or dizziness PFSH ED PFSH: Social History Smoking and tobacco/nicotine status: never used tobacco/nicotine Alcohol intake: current Alcohol intake frequency: few times a week Substance/Drug Use: never Physical Exam Const: COMMON NORMALS: no acute distress, average body habitus, patient oriented x3, no limitations, alert and well nourished GENERAL APPEARANCE: cooperative ORIENTATION/CONSCIOUSNESS: Yes awake, Yes oriented to person, Yes oriented to place and Yes oriented to time OTHER: Tremulous-states he has a known essential tremor HENMT: COMMON NORMALS: normocephalic and atraumatic HEAD & SCALP: normal to inspection, normocephalic and atraumatic Eye: COMMON NORMALS: Equal, round and reactive pupils present and EOMs intact bilaterally GENERAL EYE: appearance normal, both eyes and all related structures and normal light reflex PUPIL: Yes Equal, round and reactive pupils present DIRECT OPHTHALMOSCOPY: Yes normal light reflex Neck/C-Spine: COMMON NORMALS: full ROM CERVICAL SPINE: No Cervical spine tenderness Resp: COMMON NORMALS: normal respiratory effort and clear to auscultation bilaterally AUSCULTATION: clear to auscultation bilaterally Cardio: COMMON NORMALS: regular rhythm RATE: tachycardic RHYTHM: regular rhythm GI: COMMON NORMALS: Normal to inspection, nondistended, normoactive bowel sounds present, Soft to palpation and non-tender PALPATION: Yes Soft to palpation Back/Pelvis: COMMON NORMALS: thoracic and lumbar spine normal to inspection Extremity: GENERAL: Yes normal exam except as noted Neuro: HANY COMA SCALE: document GCS findings Hany coma scale eye opening: Spontaneous Erie coma scale verbal response: Orientated Erie coma scale motor response: Obey commands Hany coma scale total score: 15 COMMON NORMALS: patient oriented x3, CN's II-XII intact bilaterally, moves all extremities, no focal motor deficits, no sensory deficits noted and gait normal SENSORIUM/ORIENTATION: Yes alert, Yes oriented to person, Yes oriented to place and Yes oriented to time Skin: COMMON NORMALS: no rashes or lesions noted GENERAL SKIN EXAM: no rashes or lesions noted Course Vital Signs: Vital signs: Vital Signs Temperature 98.1 F 10/04/23 15:03 Pulse Rate 92 10/04/23 17:54 Respiratory Rate 23 H 10/04/23 17:54 Blood Pressure 153/103 10/04/23 17:54 Pulse Oximetry 100 10/04/23 17:54 Oxygen Delivery Me thod Room Air 10/04/23 17:54 MDM - Seizure MDM Narrative Medical decision making narrative: Patient's blood work (mild hyponatremia, thrombocytopenia, elevated anion gap, transaminitis) makes me believe he is drinking more then he is reporting. Patient will not even entertain the idea that his alcohol use could be related. He states he chronically sleeps poorly. Epilepsy still at top of differential. Since he is agreeable to neurology follow up (at least at the moment-he is chronically non-compliant) then will go ahead and schedule him for an outpatient sleep deprived EEG and have him follow up with Dr. Kiser. Again he refuses medications. He was given strict instructions for NO DRIVING until he is cleared by neurology. Patient has had normal head CT previously thus I do not see any indication to repeat today. Lactate elevated at 6.9 most likely from his seizure. He is no longer tachycardic. No elevated white count. Plan for 2L NS fluid bolus and repeat. He has no abdominal tenderness to suggest acute intra-abdominal process for his transaminitis. They have not significantly changed since his blood work in May. Lab Data 10/04/23 15:20 10/04/23 15:20 Labs: Laboratory Results WBC 6.19 10^3/uL (3.29-11.43) 10/04/23 15:20 RBC 4.32 10^6/uL (3.85-5.65) 10/04/23 15:20 Hgb 15.10 g/dL (11.27-16.99) 10/04/23 15:20 Hct 43.6 % (37-53) 10/04/23 15:20 MCV 100.9 fl (82-101) 10/04/23 15:20 MCH 35.0 pg (27-33) H 10/04/23 15:20 MCHC 34.6 g/dL (30-55) 10/04/23 15:20 RDW 12.9 % (12.1-15.1) 10/04/23 15:20 Plt Count 153 10^3/cmm (157-399) L 10/04/23 15:20 MPV 12.2 fL (7.4-10.4) H 10/04/23 15:20 Neut % (Auto) 85.9 % 10/04/23 15:20 Lymph % (Auto) 6.8 % 10/04/23 15:20 Gove % (Auto) 5.5 % 10/04/23 15:20 Eos % (Auto) 0.5 % 10/04/23 15:20 Baso % (Auto) 1.0 % 10/04/23 15:20 Neut # (Auto) 5.32 10^3/uL (1.8-7.7) 10/04/23 15:20 Lymph # (Auto) 0.4 10^3/uL (0.8-4.8) L 10/04/23 15:20 Gove # (Auto) 0.3 10^3/uL (0.2-0.9) 10/04/23 15:20 Eos # (Auto) 0.0 10^3/uL (0.0-0.8) 10/04/23 15:20 Baso # (Auto) 0.1 10^3/uL (0.0-0.1) 10/04/23 15:20 Nucleated RBC % (auto) 0 % 10/04/23 15:20 Nucleated RBCs # 0.0 /100WBC 10/04/23 15:20 Sodium 133 mmol/L (136-145) L 10/04/23 15:20 Potassium 4.2 mmol/L (3.5-5.1) 10/04/23 15:20 Chloride 92 mmol/L (98-107) L 10/04/23 15:20 Carbon Dioxide 23 mmol/L (22-29) 10/04/23 15:20 Anion Gap 22.2 (5-19) H 10/04/23 15:20 BUN 8 mg/dL (6-20) 10/04/23 15:20 Creatinine 1.1 mg/dL (0.7-1.2) 10/04/23 15:20 GFR Calculation 78.6 mL/min (90-130) L 10/04/23 15:20 Glucose 161 mg/dL (65-115) H 10/04/23 15:20 Calculated Osmolality 278 mOsm/kg (285-295) L 10/04/23 15:20 Lactic Acid 6.9 mmol/L (0.5-2.2) H* 10/04/23 15:29 Lactic Acid (Sepsis) 1.8 mmol/L (0.5-2.2) 10/04/23 17:36 Calcium 10.1 mg/dL (8.5-10.5) 10/04/23 15:20 Total Bilirubin 1.9 mg/dL (0.15-1.2) H 10/04/23 15:20 AST 130 U/L (0-40) H 10/04/23 15:20 ALT 71 U/L (0-41) H 10/04/23 15:20 Alkaline Phosphatase 96 U/L (40-130) 10/04/23 15:20 Creatine Kinase 130 U/L (39-308) 10/04/23 15:20 Total Protein 8.1 g/dL (6.6-8.7) 10/04/23 15:20 Albumin 5.0 g/dL (3.5-5.2) 10/04/23 15:20 Globulin 3.1 g/dL (1.3-4.6) 10/04/23 15:20 Ethyl Alcohol < 10 mg/dL (0-10) 10/04/23 15:20 No radiology studies performed this visit Discharge Plan Discharge Patient Disposition: Home Clinical Impression: Seizures, Chronic alcohol abuse, Transaminitis Condition: Stable Prescriptions: No Action ibuprofen 200 mg Tablet 600 mg PO Q6H PRN (Reason: Pain) Centrum Men 8 mg iron- 200 mcg-600 mcg Tablet 1 tab PO DAILY cyanocobalamin (vitamin B-12) 3,000 mcg capsule 3,000 mcg PO DAILY Qty: 30 3RF dexamethasone 6 mg tablet 6 mg PO DAILY Qty: 6 0RF Discharge Orders: Discharge ED (Routine); Ordered 10/04/23 Ordered By: Juan Ramsey Patient Instructions: Epilepsy (DC), Generalized Tonic Clonic Seizures (ED), Seizures Activity Restrictions/Additional Instructions: As we discussed central scheduling should be reaching out to you to set you up with your outpatient sleep deprived EEG. You should also be hearing from case management to set you up with your follow-up appointment with neurology/Dr. Kiser. As we discussed, due to repetitive seizures over the past few months I recommend that YOU DO NOT DRIVE until cleared by neurology. By doing so, if you were to have a seizure behind the wheel then you could injury another individual or yourself. Coding Level of Care Code ED Distributed Generation Project Manager for [employer] Documented by User: LIAM Gamze 10/04/23 18:19 HPI - Seizure General: Chief Complaint: Seizure Stated Complaint: possible seizure Time Seen by Provider: 10/04/23 15:23 PFSH ED PFSH: Social History Smoking and tobacco/nicotine status: never used tobacco/nicotine Alcohol intake: current Alcohol intake frequency: few times a week Substance/Drug Use: never Physical Exam Neuro: HANY COMA SCALE: document GCS findings Erie coma scale total score: 15 Course Vital Signs: Vital signs: Vital Signs Temperature 98.1 F 10/04/23 15:03 Pulse Rate 92 10/04/23 17:54 Respiratory Rate 23 H 10/04/23 17:54 Blood Pressure 153/103 10/04/23 17:54 Pulse Oximetry 100 10/04/23 17:54 Oxygen Delivery Me thod Room Air 10/04/23 17:54 MDM - Seizure MDM Narrative Medical decision making narrative: Patient's blood work (mild hyponatremia, thrombocytopenia, elevated anion gap, transaminitis) makes me believe he is drinking more then he is reporting. Patient will not even entertain the idea that his alcohol use could be related. He states he chronically sleeps poorly. Epilepsy still at top of differential. Since he is agreeable to neurology follow up (at least at the moment-he is chronically non-compliant) then will go ahead and schedule him for an outpatient sleep deprived EEG and have him follow up with Dr. Kiser. Again he refuses medications. He was given strict instructions for NO DRIVING until he is cleared by neurology. Patient has had normal head CT previously thus I do not see any indication to repeat today. Lactate elevated at 6.9 most likely from his seizure. He is no longer tachycardic. No elevated white count. Plan for 2L NS fluid bolus and repeat. He has no abdominal tenderness to suggest acute intra-abdominal process for his transaminitis. They have not significantly changed since his blood work in May. Repeat lactate was 1.8. Patient discharged home at this time. Lab Data 10/04/23 15:20 10/04/23 15:20 Labs: Laboratory Results WBC 6.19 10^3/uL (3.29-11.43) 10/04/23 15:20 RBC 4.32 10^6/uL (3.85-5.65) 10/04/23 15:20 Hgb 15.10 g/dL (11.27-16.99) 10/04/23 15:20 Hct 43.6 % (37-53) 10/04/23 15:20 MCV 100.9 fl (82-101) 10/04/23 15:20 MCH 35.0 pg (27-33) H 10/04/23 15:20 MCHC 34.6 g/dL (30-55) 10/04/23 15:20 RDW 12.9 % (12.1-15.1) 10/04/23 15:20 Plt Count 153 10^3/cmm (157-399) L 10/04/23 15:20 MPV 12.2 fL (7.4-10.4) H 10/04/23 15:20 Neut % (Auto) 85.9 % 10/04/23 15:20 Lymph % (Auto) 6.8 % 10/04/23 15:20 Gove % (Auto) 5.5 % 10/04/23 15:20 Eos % (Auto) 0.5 % 10/04/23 15:20 Baso % (Auto) 1.0 % 10/04/23 15:20 Neut # (Auto) 5.32 10^3/uL (1.8-7.7) 10/04/23 15:20 Lymph # (Auto) 0.4 10^3/uL (0.8-4.8) L 10/04/23 15:20 Gove # (Auto) 0.3 10^3/uL (0.2-0.9) 10/04/23 15:20 Eos # (Auto) 0.0 10^3/uL (0.0-0.8) 10/04/23 15:20 Baso # (Auto) 0.1 10^3/uL (0.0-0.1) 10/04/23 15:20 Nucleated RBC % (auto) 0 % 10/04/23 15:20 Nucleated RBCs # 0.0 /100WBC 10/04/23 15:20 Sodium 133 mmol/L (136-145) L 10/04/23 15:20 Potassium 4.2 mmol/L (3.5-5.1) 10/04/23 15:20 Chloride 92 mmol/L (98-107) L 10/04/23 15:20 Carbon Dioxide 23 mmol/L (22-29) 10/04/23 15:20 Anion Gap 22.2 (5-19) H 10/04/23 15:20 BUN 8 mg/dL (6-20) 10/04/23 15:20 Creatinine 1.1 mg/dL (0.7-1.2) 10/04/23 15:20 GFR Calculation 78.6 mL/min (90-130) L 10/04/23 15:20 Glucose 161 mg/dL (65-115) H 10/04/23 15:20 Calculated Osmolality 278 mOsm/kg (285-295) L 10/04/23 15:20 Lactic Acid 6.9 mmol/L (0.5-2.2) H* 10/04/23 15:29 Lactic Acid (Sepsis) 1.8 mmol/L (0.5-2.2) 10/04/23 17:36 Calcium 10.1 mg/dL (8.5-10.5) 10/04/23 15:20 Total Bilirubin 1.9 mg/dL (0.15-1.2) H 10/04/23 15:20 AST 130 U/L (0-40) H 10/04/23 15:20 ALT 71 U/L (0-41) H 10/04/23 15:20 Alkaline Phosphatase 96 U/L (40-130) 10/04/23 15:20 Creatine Kinase 130 U/L (39-308) 10/04/23 15:20 Total Protein 8.1 g/dL (6.6-8.7) 10/04/23 15:20 Albumin 5.0 g/dL (3.5-5.2) 10/04/23 15:20 Globulin 3.1 g/dL (1.3-4.6) 10/04/23 15:20 Ethyl Alcohol < 10 mg/dL (0-10) 10/04/23 15:20 Discharge Plan Discharge Patient Disposition: Home Clinical Impression: Seizures, Chronic alcohol abuse, Transaminitis Condition: Stable Prescriptions: No Action ibuprofen 200 mg Tablet 600 mg PO Q6H PRN (Reason: Pain) Centrum Men 8 mg iron- 200 mcg-600 mcg Tablet 1 tab PO DAILY cyanocobalamin (vitamin B-12) 3,000 mcg capsule 3,000 mcg PO DAILY Qty: 30 3RF dexamethasone 6 mg tablet 6 mg PO DAILY Qty: 6 0RF Discharge Orders: Discharge ED (Routine); Ordered 10/04/23 Ordered By: Juan Ramsey Patient Instructions: Epilepsy (DC), Generalized Tonic Clonic Seizures (ED), Seizures Activity Restrictions/Additional Instructions: As we discussed central scheduling should be reaching out to you to set you up with your outpatient sleep deprived EEG. You should also be hearing from case management to set you up with your follow-up appointment with neurology/Dr. Kiser. As we discussed, due to repetitive seizures over the past few months I recommend that YOU DO NOT DRIVE until cleared by neurology. By doing so, if you were to have a seizure behind the wheel then you could injury another individual or yourself. Coding Level of Care Code ED Distributed Generation Project Manager for Randy Downey
[2023-10-04 15:51] LABS: Alanine Aminotransferase 71 U/L (0-41); Alkaline Phosphatase 96 U/L (40-130); Anion Gap 22.2 (5-19); Aspartate Amino Transferase 130 U/L (0-40); Blood Urea Nitrogen 8 mg/dL (6-20); Calcium 10.1 mg/dL (8.5-10.5); Carbon Dioxide 23 mmol/L (22-29); Chloride 92 mmol/L (98-107); Creatinine Clr Calc Pharmacy 107.5594; Globulin 3.1 g/dL (1.3-4.6); Glomerular Filtration Rate 78.6 mL/min (90-130); Glucose 161 mg/dL (65-115); Osmolality Calculated 278 mOsm/kg (285-295); Potassium 4.2 mmol/L (3.5-5.1); Sodium 133 mmol/L (136-145); Total Bilirubin 1.9 mg/dL (0.15-1.2); Total Protein 8.1 g/dL (6.6-8.7)
[2023-10-04] MEDS: sodium chloride 0.9% 1,000 ML 999 ML IV ×2 (15:59→16:29)
[2023-10-04 16:15] LABS: Creatine Phosphokinase 130 U/L (39-308)
[2023-10-04 16:17] LABS: Alcohol Level < 10 mg/dL (0-10)
[2023-10-04 16:19] LABS: Lactic Sepsis W/Reflex 6.9 mmol/L (0.5-2.2)
[2023-10-04 16:40] VITALS: BP 147/100; PULSE 88; RESP 21; O2SAT 99
[2023-10-04 17:36] LABS: Reflex Lactate Order REFLEX LACTIC ORDERD
[2023-10-04 17:54] VITALS: BP 153/103; PULSE 92; RESP 23; O2SAT 100
[2023-10-04 18:17] LABS: Lactic Acid level (Lactate) 1.8 mmol/L (0.5-2.2)
[2023-10-04 18:41] VITALS: BP 144/93; PULSE 100; O2SAT 96
--- NOTE | 2023-10-06 08:04 | DCPLANNER ---
message sent to neurology for er f/u
== END 2023-10-04 18:42 | disposition home or self-care (01) ==
PROVIDERS: Emergency Medicine; Emergency Provider Physician Assistant
DX: R56.9 Unspecified convulsions (principal); F10.10 Alcohol abuse, uncomplicated; R74.01 Elevation of levels of liver transaminase levels
CPT/HCPCS: 36415; 80053; 80307; 82550; 83605; 85025; 96360; 96361; 99284; J7030